=== PATIENT | female | born 1990 | race Caucasian/White ===

== ENCOUNTER 2022-06-04 12:33 | Emergency (ER) | payer BC ==
[2022-06-04] MEDS: Sodium Chloride 0.9% 10 ML Syringe FLUSH PRN (13:30)
[2022-06-04] MEDS: Sodium Chloride 0.9% 1,000 ML IV SCH (13:40)
[2022-06-04] MEDS: Morphine 2 MG/ML SYRINGE IVPUSH STA (13:40)
[2022-06-04] MEDS: Ondansetron 4 MG/2 ML SDV IVPUSH STA (13:41)
[2022-06-04] MEDS: Ketorolac 30 MG/ML SDV IVPUSH ONE (13:41)
[2022-06-04] MEDS: diphenhydrAMINE 50 MG/ML SDV IVPUSH STA (13:53)
[2022-06-04 14:02] LABS: ESTIMATED GFR 118 mL/min (>60)
== END 2022-06-04 16:20 | disposition home or self-care (01) ==
LOC: FB.ED 12:33
DX: N13.2 Hydronephrosis with renal and ureteral calculous obstruction (principal); E03.9 Hypothyroidism, unspecified; K21.9 Gastro-esophageal reflux disease without esophagitis; Z79.899 Other long term (current) drug therapy; Z88.0 Allergy status to penicillin
CPT/HCPCS: 36415; 74176; 80053; 81001; 81025; 82150; 83690; 85025; 96361; 96374; 96375; 99282; 99284-25; J1200; J1885; J2270; J2405; J3490; J7030

== ENCOUNTER 2022-08-18 06:02 | Emergency (ER) | payer BC ==
[2022-08-18 06:22] VITALS: BP 111/74; PULSE 65
[2022-08-18] MEDS ORDERED: Ketorolac 30 MG/ML SDV IVPUSH ONE (06:27)
[2022-08-18] MEDS: Sodium Chloride 0.9% 10 ML Syringe FLUSH PRN ×3 (06:39→08:32)
[2022-08-18] MEDS ORDERED: HYDROmorphone 2 MG/ML SDV IVPUSH ONE ×2 (07:38→08:27)
[2022-08-18] MEDS ORDERED: Bisacodyl 10 MG Supp RECTAL ONE (09:00)
== END 2022-08-18 10:45 | disposition home or self-care (01) ==
LOC: FB.ED 06:02
DX: K59.01 Slow transit constipation (principal); K65.4 Sclerosing mesenteritis; K21.9 Gastro-esophageal reflux disease without esophagitis; E03.9 Hypothyroidism, unspecified; Z88.0 Allergy status to penicillin; Z79.899 Other long term (current) drug therapy
CPT/HCPCS: 36415; 74176; 81001; 81025; 85027; 86140; 96374; 96375; 96376; 99284-25; A9270-GY; J1170; J1885; J3490

== ENCOUNTER 2022-12-14 13:12 | Emergency (ER) | payer BC, OTHER ==
[2022-12-14] MEDS ORDERED: Ondansetron 4 MG Tab.DIS PO ONE (13:13)
[2022-12-14] MEDS ORDERED: Acetaminophen/HYDROcodone 325-5 MG Tab PO ONE (13:13)
[2022-12-14] MEDS ORDERED: Ondansetron 4 MG/2 ML SDV IVPUSH ONE (13:35)
[2022-12-14] MEDS ORDERED: HYDROmorphone 2 MG/ML SDV IVPUSH ONE ×2 (13:35→16:37)
[2022-12-14] MEDS ORDERED: Ketorolac 30 MG/ML SDV IVPUSH ONE (13:35)
[2022-12-14] MEDS ORDERED: Sodium Chloride 0.9% 10 ML Syringe FLUSH PRN (13:35)
[2022-12-14] MEDS ORDERED: Sodium Chloride 0.9% 1,000 ML IV ONE (13:35)
[2022-12-14 14:21] LABS: ESTIMATED GFR 127 mL/min (>60)
== END 2022-12-14 17:10 | disposition home or self-care (01) ==
LOC: FB.ED 13:12
DX: K80.20 Calculus of gallbladder without cholecystitis without obstruction (principal); E03.9 Hypothyroidism, unspecified; E66.9 Obesity, unspecified; Z68.31 Body mass index [BMI] 31.0-31.9, adult; Z88.0 Allergy status to penicillin; Z88.1 Allergy status to other antibiotic agents; Z79.899 Other long term (current) drug therapy
CPT/HCPCS: 36415; 74176; 80053; 81001; 81025; 83690; 83735; 85025; 86140; 96361; 96374; 96375; 96376; 99284-25; A9270-GY; J1170; J1885; J2405; J3490; J7030; Q0162